=== PATIENT | male | born 1965 | race Caucasian/White ===

== ENCOUNTER 2021-06-10 02:49 | Inpatient (IN) ==
[2021-06-10] MEDS ORDERED: Naloxone 0.4 MG/ML INJ IVP PRN (06:16)
[2021-06-10] MEDS ORDERED: Artificial Tears SOLN 15 ML BOTTLE BOTH EYES PRN (06:31)
[2021-06-10 06:32] LABS: ABG Base Excess -3 mEq/L (-2 to 3); ABG HCO3 24 mEq/L (21-27); ABG Oxygen Saturation 97 % (95-98); ABG PCO2 48 mmHg (35-45); ABG PH 7.31 pH Units (7.32-7.45); ABG PO2 98 mmHg (85-104); ABG TCO2 26 mEq/L (20-26); Blood Gas VT 500 cc
[2021-06-10] MEDS ORDERED: Perflutren Lipid Microsphere 1.3 ML in 0.9 % Sodium Chloride 8.7 ML IVP PRN ×2 (06:34→10:13)
[2021-06-10] MEDS ORDERED: Dextrose Gel 15 GM/37.5 ML TUBE PO PRN ×2 (06:36)
[2021-06-10] MEDS ORDERED: *HR* Dextrose 50 % in Water (Syg) 50 ML SYRINGE IVP PRN (06:36)
[2021-06-10] MEDS ORDERED: D5% in Water 1,000 ML IVC PRN (06:36)
[2021-06-10] MEDS: Artificial Tears SOLN 15 ML BOTTLE BOTH EYES SCH ×5 (07:17→23:45)
[2021-06-10] MEDS: FentaNYL (PF) 1,000 MCG/100 ML IV.SOLN IVC SCH ×2 (07:17→16:35)
[2021-06-10] MEDS: Midazolam HCl 50 MG/100 ML IV.SOLN IVC SCH (07:17)
[2021-06-10 07:21] LABS: Hematocrit 44.7 % (37.5-50.1); Hemoglobin 13.4 g/dL (12.9-16.9); Mean Corpuscular Hemoglobin 26.5 pg (28.0-33.3); Mean Corpuscular Volume 88.5 fL (83.0-100.0); Mean Platelet Volume 10.5 fL (9.4-12.4); Platelet Count 262 K/mcL (140-400); Red Blood Count 5.05 M/mcL (4.19-5.50); Red Cell Distribution Width 19.1 % (11.5-14.5); White Blood Count 10.8 K/mcL (4.3-11.1)
[2021-06-10 07:28] LABS: Heparin anti-factor XA UFH < 0.04 IU/mL (0.30-0.70); Prothrombin Time 22.7 Seconds (9.4-12.1)
[2021-06-10 07:31] LABS: Activated Partial Thrombo Time 38.4 Seconds (26.0-36.0)
[2021-06-10 07:52] LABS: Bilirubin,Urine Negative (Negative); Blood,Urine Negative (Negative); Clarity,Urine Clear (Clear); Color,Urine Colorless (Yellow); Glucose,Urine (UA) Normal (Normal); Ketones,Urine Negative (Negative); Leukocyte Esterase,Urine Negative (Negative); Nitrite,Urine Negative (Negative); PH,Urine 6.5 pH Units (5.0-8.0); Protein,Urine Negative (Neg-Trace); Specific Gravity,Urine 1.008 (1.010-1.025); Urobilinogen,Urine Normal (Normal)
[2021-06-10 07:54] LABS: Albumin 3.2 g/dL (3.5-5.7); Albumin/Globulin Ratio 1.2 (1.1-2.2); Bilirubin,Direct 2.4 mg/dL (0.0-0.2); Bilirubin,Indirect 1.6 mg/dL (0.0-1.0); Calcium 9.1 mg/dL (8.6-10.3); Globulin 2.6 g/dL (2.4-3.5); Magnesium 2.4 mg/dL (1.6-2.6); Potassium 4.8 mEq/L (3.5-5.1); Total Protein 5.8 g/dL (6.4-8.9); Troponin I 0.07 ng/mL (< 0.04)
[2021-06-10] MEDS ORDERED: *HR* Heparin 5,000 UNIT/ML VIAL SQ SCH (08:00)
[2021-06-10] MEDS: Pantoprazole 40 MG VIAL IVP SCH (09:54)
[2021-06-10] MEDS: Chlorhexidine Rinse 15 ML MOUTHWASH MM SCH ×2 (09:54→19:45)
[2021-06-10] MEDS: Piperacillin/Tazobactam 3.375 GM in 0.9 % Sodium Chloride Mini Bag 100 ML IVPB SCH ×3 (09:54→23:45)
[2021-06-10] MEDS ORDERED: *HR* Heparin 5,000 UNIT/ML VIAL IVP PRN ×2 (12:10)
[2021-06-10] MEDS ORDERED: *HR* Heparin 5,000 UNIT/ML VIAL IVP ONE (12:10)
[2021-06-10] MEDS: Insulin LISPRO 300 UNITS/3 ML VIAL SUBQ SCH ×3 (12:13→23:58)
[2021-06-10 12:21] LABS: Estimated Average Glucose 255 mg/dl; Hemoglobin A1C 10.5 %
[2021-06-10] MEDS: Aspirin 81 MG TAB.CHEW PO SCH (13:26)
[2021-06-10] MEDS: Heparin 25,000UNIT/250ML 1/2NS 25,000 UNIT/250 ML IV.SOLN IVC SCH (13:27)
[2021-06-10 15:44] LABS: Hematocrit 39.8 % (37.5-50.1); Hemoglobin 12.5 g/dL (12.9-16.9); Mean Corpuscular HGB Conc 31.4 g/dL (31.6-35.5); Mean Corpuscular Hemoglobin 26.5 pg (28.0-33.3); Mean Corpuscular Volume 84.3 fL (83.0-100.0); Mean Platelet Volume 10.7 fL (9.4-12.4); Platelet Count 236 K/mcL (140-400); Red Blood Count 4.72 M/mcL (4.19-5.50); Red Cell Distribution Width 18.5 % (11.5-14.5); White Blood Count 7.5 K/mcL (4.3-11.1)
[2021-06-10 16:11] LABS: INR 2.5; Prothrombin Time 27.5 Seconds (9.4-12.1)
[2021-06-10 16:19] LABS: Heparin anti-factor XA UFH 1.11 IU/mL (0.30-0.70)
[2021-06-11 00:06] LABS: VBG Ionized Calcium 1.06 mmol/L (1.15-1.35)
[2021-06-11] MEDS: FentaNYL (PF) 1,000 MCG/100 ML IV.SOLN IVC SCH ×3 (00:15→16:35)
[2021-06-11 00:22] LABS: Calcium 8.1 mg/dL (8.6-10.3); Magnesium 2.1 mg/dL (1.6-2.6); Phosphorous 3.4 mg/dL (2.7-4.5); Potassium 3.9 mEq/L (3.5-5.1)
[2021-06-11] MEDS: Artificial Tears SOLN 15 ML BOTTLE BOTH EYES SCH ×4 (04:00→16:00)
[2021-06-11 04:04] LABS: ABG Base Excess 5 mEq/L (-2 to 3); ABG HCO3 28 mEq/L (21-27); ABG Oxygen Saturation 93 % (95-98); ABG PCO2 33 mmHg (35-45); ABG PH 7.53 pH Units (7.32-7.45); ABG PO2 59 mmHg (85-104); ABG TCO2 29 mEq/L (20-26); Blood Gas VT 500 cc
[2021-06-11 04:29] LABS: Basophils % 0.3 %; Eosinophils # 0.1 K/mcL (0.0-0.6); Eosinophils % 1.2 %; Hematocrit 41.9 % (37.5-50.1); Hemoglobin 13.1 g/dL (12.9-16.9); Immature Granulocytes % 0.4 % (0-4); Lymphocytes # 1.6 K/mcL (0.6-4.6); Lymphocytes % 20.9 %; Mean Corpuscular HGB Conc 31.3 g/dL (31.6-35.5); Mean Corpuscular Volume 83.3 fL (83.0-100.0); Mean Platelet Volume 10.2 fL (9.4-12.4); Monocytes # 0.6 K/mcL (0.0-1.3); Monocytes % 8.3 %; Neutrophils # 5.2 K/mcL (1.6-8.9); Nucleated Red Blood Cells 0.4 /100 WBC (0); Platelet Count 252 K/mcL (140-400); Red Blood Count 5.03 M/mcL (4.19-5.50); Segmented Neutrophils % 68.9 %; White Blood Count 7.6 K/mcL (4.3-11.1)
[2021-06-11 05:05] LABS: Calcium 8.3 mg/dL (8.6-10.3); Magnesium 2.2 mg/dL (1.6-2.6); Phosphorous 3.6 mg/dL (2.7-4.5); Potassium 3.9 mEq/L (3.5-5.1)
[2021-06-11] MEDS: Insulin LISPRO 300 UNITS/3 ML VIAL SUBQ SCH ×2 (06:18→14:47)
[2021-06-11] MEDS: Midazolam HCl 50 MG/100 ML IV.SOLN IVC SCH (08:26)
[2021-06-11] MEDS: Pantoprazole 40 MG VIAL IVP SCH (08:46)
[2021-06-11] MEDS: Aspirin 81 MG TAB.CHEW PO SCH (08:49)
[2021-06-11] MEDS: Chlorhexidine Rinse 15 ML MOUTHWASH MM SCH ×2 (08:49→21:35)
[2021-06-11] MEDS: Piperacillin/Tazobactam 3.375 GM in 0.9 % Sodium Chloride Mini Bag 100 ML IVPB SCH ×2 (08:49→16:59)
[2021-06-11] MEDS: Furosemide 240 MG in 0.9 % Sodium Chloride 96 ML IVC SCH (12:13)
[2021-06-11 13:26] LABS: VBG HCO3 28 mEq/L (21-27); VBG PCO2 44 mmHg (41-51); VBG PH 7.42 pH Units (7.32-7.42); VBG PO2 102 mmHg (25-50)
[2021-06-11 13:31] LABS: Potassium 3.9 mEq/L (3.5-5.1)
[2021-06-11] MEDS: Heparin 25,000UNIT/250ML 1/2NS 25,000 UNIT/250 ML IV.SOLN IVC SCH (14:44)
[2021-06-11 22:14] LABS: Calcium 8.1 mg/dL (8.6-10.3); Potassium 3.8 mEq/L (3.5-5.1)
[2021-06-12] MEDS: FentaNYL (PF) 1,000 MCG/100 ML IV.SOLN IVC SCH ×3 (00:29→17:00)
[2021-06-12] MEDS: Piperacillin/Tazobactam 3.375 GM in 0.9 % Sodium Chloride Mini Bag 100 ML IVPB SCH ×3 (00:48→17:00)
[2021-06-12 04:09] LABS: ABG Base Excess 6 mEq/L (-2 to 3); ABG HCO3 29 mEq/L (21-27); ABG Oxygen Saturation 94 % (95-98); ABG PCO2 36 mmHg (35-45); ABG PH 7.51 pH Units (7.32-7.45); ABG PO2 64 mmHg (85-104); ABG TCO2 30 mEq/L (20-26); Blood Gas VT 500 cc
[2021-06-12 04:15] LABS: Basophils % 0.3 %; Eosinophils # 0.1 K/mcL (0.0-0.6); Eosinophils % 0.7 %; Hematocrit 46.8 % (37.5-50.1); Immature Granulocytes % 0.4 % (0-4); Lymphocytes # 1.5 K/mcL (0.6-4.6); Lymphocytes % 22.2 %; Mean Corpuscular HGB Conc 31.4 g/dL (31.6-35.5); Mean Corpuscular Hemoglobin 26.5 pg (28.0-33.3); Mean Corpuscular Volume 84.3 fL (83.0-100.0); Mean Platelet Volume 10.2 fL (9.4-12.4); Monocytes # 0.6 K/mcL (0.0-1.3); Monocytes % 8.5 %; Neutrophils # 4.6 K/mcL (1.6-8.9); Platelet Count 276 K/mcL (140-400); Red Blood Count 5.55 M/mcL (4.19-5.50); Red Cell Distribution Width 19.5 % (11.5-14.5); Segmented Neutrophils % 67.9 %; White Blood Count 6.8 K/mcL (4.3-11.1)
[2021-06-12 04:24] LABS: Calcium 8.6 mg/dL (8.6-10.3); Potassium 3.5 mEq/L (3.5-5.1)
[2021-06-12 04:30] LABS: Hemoglobin 14.7 g/dL (12.9-16.9)
[2021-06-12] MEDS: Midazolam HCl 50 MG/100 ML IV.SOLN IVC SCH (06:42)
[2021-06-12] MEDS: Insulin LISPRO 300 UNITS/3 ML VIAL SUBQ SCH ×4 (07:25→18:07)
[2021-06-12] MEDS: Artificial Tears SOLN 15 ML BOTTLE BOTH EYES SCH ×6 (07:26→21:20)
[2021-06-12] MEDS: Heparin 25,000UNIT/250ML 1/2NS 25,000 UNIT/250 ML IV.SOLN IVC SCH (07:56)
[2021-06-12] MEDS: Pantoprazole 40 MG VIAL IVP SCH (08:04)
[2021-06-12] MEDS: Aspirin 81 MG TAB.CHEW PO SCH (08:04)
[2021-06-12] MEDS: Chlorhexidine Rinse 15 ML MOUTHWASH MM SCH ×2 (08:05→21:19)
[2021-06-12] MEDS ORDERED: Potassium Phosphate 44 MEQ in 0.9 % Sodium Chloride 250 ML IVPB PRN (08:14)
[2021-06-12] MEDS ORDERED: Calcium Gluconate 1gm/50mL 1 GM/50 ML BAG IVPB PRN (08:14)
[2021-06-12] MEDS: Furosemide 240 MG in 0.9 % Sodium Chloride 96 ML IVC SCH (09:33)
[2021-06-12] MEDS ORDERED: acetaZOLAMIDE 250 MG in Water for inj. (sterile) 2.5 ML IVP ONE (09:45)
[2021-06-12] MEDS: Dexmedetomidine HCl 400 MCG/100 ML MLS IVC SCH (13:32)
[2021-06-12 16:56] LABS: VBG Ionized Calcium 0.97 mmol/L (1.15-1.35)
[2021-06-12 17:06] LABS: Basophils % 0.4 %; Eosinophils % 0.5 %; Hematocrit 47.7 % (37.5-50.1); Hemoglobin 14.4 g/dL (12.9-16.9); Immature Granulocytes % 0.5 % (0-4); Lymphocytes # 1.5 K/mcL (0.6-4.6); Lymphocytes % 19.8 %; Mean Corpuscular HGB Conc 30.2 g/dL (31.6-35.5); Mean Corpuscular Hemoglobin 26.4 pg (28.0-33.3); Mean Corpuscular Volume 87.5 fL (83.0-100.0); Mean Platelet Volume 10.2 fL (9.4-12.4); Monocytes # 0.7 K/mcL (0.0-1.3); Monocytes % 9.8 %; Neutrophils # 5.2 K/mcL (1.6-8.9); Platelet Count 266 K/mcL (140-400); Red Blood Count 5.45 M/mcL (4.19-5.50); Red Cell Distribution Width 19.9 % (11.5-14.5); White Blood Count 7.5 K/mcL (4.3-11.1)
[2021-06-12 17:41] LABS: Calcium 8.2 mg/dL (8.6-10.3); Magnesium 2.2 mg/dL (1.6-2.6); Phosphorous 4.2 mg/dL (2.7-4.5); Potassium 4.2 mEq/L (3.5-5.1)
[2021-06-13] MEDS: Dexmedetomidine HCl 400 MCG/100 ML MLS IVC SCH ×3 (00:02→21:40)
[2021-06-13] MEDS: Piperacillin/Tazobactam 3.375 GM in 0.9 % Sodium Chloride Mini Bag 100 ML IVPB SCH ×4 (00:15→23:36)
[2021-06-13] MEDS: Artificial Tears SOLN 15 ML BOTTLE BOTH EYES SCH ×7 (00:16→23:12)
[2021-06-13] MEDS: Insulin LISPRO 300 UNITS/3 ML VIAL SUBQ SCH ×6 (00:35→23:22)
[2021-06-13 03:21] LABS: Basophils % 0.2 %; Eosinophils # 0.1 K/mcL (0.0-0.6); Eosinophils % 1.1 %; Hematocrit 45.4 % (37.5-50.1); Hemoglobin 13.7 g/dL (12.9-16.9); Immature Granulocytes % 0.4 % (0-4); Lymphocytes # 1.3 K/mcL (0.6-4.6); Lymphocytes % 22.3 %; Mean Corpuscular HGB Conc 30.2 g/dL (31.6-35.5); Mean Corpuscular Hemoglobin 26.3 pg (28.0-33.3); Mean Corpuscular Volume 87.3 fL (83.0-100.0); Mean Platelet Volume 10.1 fL (9.4-12.4); Monocytes # 0.5 K/mcL (0.0-1.3); Monocytes % 8.3 %; Neutrophils # 3.8 K/mcL (1.6-8.9); Nucleated Red Blood Cells 0.4 /100 WBC (0); Platelet Count 238 K/mcL (140-400); Red Cell Distribution Width 19.5 % (11.5-14.5); Segmented Neutrophils % 67.7 %; White Blood Count 5.7 K/mcL (4.3-11.1)
[2021-06-13 03:28] LABS: ABG Base Excess 7 mEq/L (-2 to 3); ABG HCO3 34 mEq/L (21-27); ABG Oxygen Saturation 70 % (95-98); ABG PCO2 56 mmHg (35-45); ABG PH 7.39 pH Units (7.32-7.45); ABG PO2 38 mmHg (85-104); ABG TCO2 36 mEq/L (20-26)
[2021-06-13 03:40] LABS: Calcium 8.8 mg/dL (8.6-10.3); Potassium 3.4 mEq/L (3.5-5.1)
[2021-06-13 03:41] LABS: VBG Ionized Calcium 1.11 mmol/L (1.15-1.35)
[2021-06-13] MEDS ORDERED: Albumin Human 5% 12.5 GM/250 ML IV.SOLN IVPB ONE (04:10)
[2021-06-13 04:46] LABS: ABG Base Excess 5 mEq/L (-2 to 3); ABG HCO3 31 mEq/L (21-27); ABG Oxygen Saturation 94 % (95-98); ABG PCO2 48 mmHg (35-45); ABG PH 7.41 pH Units (7.32-7.45); ABG PO2 70 mmHg (85-104); ABG TCO2 32 mEq/L (20-26); Blood Gas VT 450 cc
[2021-06-13] MEDS: Chlorhexidine Rinse 15 ML MOUTHWASH MM SCH ×2 (09:06→19:52)
[2021-06-13] MEDS: Aspirin 81 MG TAB.CHEW PO SCH (09:06)
[2021-06-13] MEDS: Pantoprazole 40 MG VIAL IVP SCH (09:06)
[2021-06-13 09:34] LABS: Hematocrit 45.4 % (37.5-50.1); Hemoglobin 13.9 g/dL (12.9-16.9)
[2021-06-13 17:42] LABS: Hematocrit 48.8 % (37.5-50.1); Hemoglobin 14.7 g/dL (12.9-16.9)
[2021-06-13] MEDS: FentaNYL (PF) 1,000 MCG/100 ML IV.SOLN IVC SCH ×2 (19:00→23:53)
[2021-06-13] MEDS: Midazolam HCl 50 MG/100 ML IV.SOLN IVC SCH ×2 (19:44→22:33)
[2021-06-13 20:21] LABS: Hematocrit 40.3 % (37.5-50.1)
[2021-06-13 20:23] LABS: Hemoglobin 11.5 g/dL (12.9-16.9)
[2021-06-13 22:57] LABS: Calcium 8.7 mg/dL (8.6-10.3); Potassium 4.1 mEq/L (3.5-5.1)
[2021-06-14] MEDS: Dexmedetomidine HCl 400 MCG/100 ML MLS IVC SCH ×5 (02:09→22:01)
[2021-06-14] MEDS: Artificial Tears SOLN 15 ML BOTTLE BOTH EYES SCH ×5 (03:20→19:53)
[2021-06-14 04:22] LABS: ABG Base Excess 2 mEq/L (-2 to 3); ABG HCO3 29 mEq/L (21-27); ABG Oxygen Saturation 95 % (95-98); ABG PCO2 51 mmHg (35-45); ABG PH 7.36 pH Units (7.32-7.45); ABG PO2 78 mmHg (85-104); ABG TCO2 31 mEq/L (20-26); Blood Gas VT 450 cc
[2021-06-14] MEDS: Insulin LISPRO 300 UNITS/3 ML VIAL SUBQ SCH ×3 (05:18→17:58)
[2021-06-14] MEDS: FentaNYL (PF) 1,000 MCG/100 ML IV.SOLN IVC SCH (05:47)
[2021-06-14] MEDS: Midazolam HCl 50 MG/100 ML IV.SOLN IVC SCH (06:29)
[2021-06-14] MEDS: Piperacillin/Tazobactam 3.375 GM in 0.9 % Sodium Chloride Mini Bag 100 ML IVPB SCH (07:46)
[2021-06-14] MEDS: Pantoprazole 40 MG VIAL IVP SCH (07:49)
[2021-06-14] MEDS: Chlorhexidine Rinse 15 ML MOUTHWASH MM SCH ×2 (07:49→19:55)
[2021-06-14] MEDS: Aspirin 81 MG TAB.CHEW PO SCH (07:49)
[2021-06-14 08:03] LABS: Hematocrit 46.9 % (37.5-50.1); Mean Corpuscular HGB Conc 29.6 g/dL (31.6-35.5); Mean Corpuscular Hemoglobin 25.9 pg (28.0-33.3); Mean Corpuscular Volume 87.3 fL (83.0-100.0); Mean Platelet Volume 10.1 fL (9.4-12.4); Platelet Count 257 K/mcL (140-400); Red Blood Count 5.37 M/mcL (4.19-5.50); Red Cell Distribution Width 19.4 % (11.5-14.5); White Blood Count 7.3 K/mcL (4.3-11.1)
[2021-06-14 08:04] LABS: Hemoglobin 13.9 g/dL (12.9-16.9)
[2021-06-14 08:14] LABS: Calcium 8.3 mg/dL (8.6-10.3); Magnesium 2.3 mg/dL (1.6-2.6); Phosphorous 3.9 mg/dL (2.7-4.5); Potassium 3.5 mEq/L (3.5-5.1)
[2021-06-14 08:16] LABS: Calcium 8.3 mg/dL (8.6-10.3); Potassium 3.5 mEq/L (3.5-5.1)
[2021-06-14] MEDS ORDERED: Furosemide 40 MG/4 ML VIAL IVP ONE (11:04)
[2021-06-14] MEDS: Pantoprazole 40 MG in 0.9 % Sodium Chloride Mini Bag 100 ML IVC SCH (19:55)
[2021-06-15] MEDS: Artificial Tears SOLN 15 ML BOTTLE BOTH EYES SCH ×7 (00:09→23:00)
[2021-06-15] MEDS: Pantoprazole 40 MG in 0.9 % Sodium Chloride Mini Bag 100 ML IVC SCH ×2 (00:09→05:15)
[2021-06-15 04:48] LABS: ABG Base Excess 3 mEq/L (-2 to 3); ABG HCO3 30 mEq/L (21-27); ABG Oxygen Saturation 93 % (95-98); ABG PCO2 54 mmHg (35-45); ABG PH 7.36 pH Units (7.32-7.45); ABG PO2 72 mmHg (85-104); ABG TCO2 32 mEq/L (20-26); Blood Gas VT 450 cc
[2021-06-15] MEDS: FentaNYL (PF) 1,000 MCG/100 ML IV.SOLN IVC SCH ×2 (05:10→15:32)
[2021-06-15] MEDS: Dexmedetomidine HCl 400 MCG/100 ML MLS IVC SCH ×4 (05:10→22:55)
[2021-06-15] MEDS: Midazolam HCl 50 MG/100 ML IV.SOLN IVC SCH (05:32)
[2021-06-15 06:27] LABS: Hematocrit 49.2 % (37.5-50.1); Hemoglobin 14.6 g/dL (12.9-16.9); Mean Corpuscular HGB Conc 29.7 g/dL (31.6-35.5); Mean Corpuscular Hemoglobin 26.1 pg (28.0-33.3); Mean Corpuscular Volume 87.9 fL (83.0-100.0); Mean Platelet Volume 10.3 fL (9.4-12.4); Platelet Count 220 K/mcL (140-400); Red Cell Distribution Width 19.7 % (11.5-14.5); White Blood Count 8.4 K/mcL (4.3-11.1)
[2021-06-15 06:46] LABS: BUN/Creatinine Ratio 18 (6-26); Blood Urea Nitrogen 26 mg/dL (6-20); Calcium 8.4 mg/dL (8.6-10.3); Carbon Dioxide 28 mEq/L (23-29); Chloride 104 mEq/L (98-107); Glucose 146 mg/dL (70-105); Osmolality,Calculated 301 (280-300); Potassium 3.7 mEq/L (3.5-5.1); Sodium 142 mEq/L (136-145); eGFR For African Americans > 60 (> 60); eGFR For Non-African Americans 51 (> 60)
[2021-06-15] MEDS: Insulin LISPRO 300 UNITS/3 ML VIAL SUBQ SCH ×5 (08:53→23:00)
[2021-06-15] MEDS: Chlorhexidine Rinse 15 ML MOUTHWASH MM SCH ×2 (08:59→20:15)
[2021-06-15] MEDS: Aspirin 81 MG TAB.CHEW PO SCH (08:59)
[2021-06-15] MEDS: Pantoprazole 40 MG VIAL IVP SCH (09:52)
[2021-06-15] MEDS ORDERED: Lidocaine -MPF 1% 5 ML AMPUL INFILT ONE (17:52)
[2021-06-15] MEDS: Furosemide 20 MG/2 ML VIAL IVP SCH (18:11)
[2021-06-16] MEDS: Midazolam HCl 50 MG/100 ML IV.SOLN IVC SCH (01:33)
[2021-06-16] MEDS: Artificial Tears SOLN 15 ML BOTTLE BOTH EYES SCH ×3 (03:26→12:31)
[2021-06-16 03:53] LABS: Hematocrit 47.3 % (37.5-50.1); Hemoglobin 14.1 g/dL (12.9-16.9); Mean Corpuscular HGB Conc 29.8 g/dL (31.6-35.5); Mean Corpuscular Hemoglobin 26.3 pg (28.0-33.3); Mean Corpuscular Volume 88.2 fL (83.0-100.0); Mean Platelet Volume 9.8 fL (9.4-12.4); Platelet Count 206 K/mcL (140-400); Red Blood Count 5.36 M/mcL (4.19-5.50); Red Cell Distribution Width 19.7 % (11.5-14.5); White Blood Count 8.5 K/mcL (4.3-11.1)
[2021-06-16 04:13] LABS: BUN/Creatinine Ratio 19 (6-26); Blood Urea Nitrogen 20 mg/dL (6-20); Calcium 8.4 mg/dL (8.6-10.3); Carbon Dioxide 27 mEq/L (23-29); Chloride 106 mEq/L (98-107); Glucose 130 mg/dL (70-105); Osmolality,Calculated 298 (280-300); Potassium 3.9 mEq/L (3.5-5.1); Sodium 142 mEq/L (136-145); eGFR For African Americans > 60 (> 60); eGFR For Non-African Americans > 60 (> 60)
[2021-06-16 04:23] LABS: ABG Base Excess 1 mEq/L (-2 to 3); ABG HCO3 27 mEq/L (21-27); ABG Oxygen Saturation 96 % (95-98); ABG PCO2 48 mmHg (35-45); ABG PH 7.37 pH Units (7.32-7.45); ABG PO2 83 mmHg (85-104); ABG TCO2 29 mEq/L (20-26); Blood Gas Modality AF; Blood Gas VT 450 cc
[2021-06-16] MEDS: FentaNYL (PF) 1,000 MCG/100 ML IV.SOLN IVC SCH (06:09)
[2021-06-16] MEDS: Insulin LISPRO 300 UNITS/3 ML VIAL SUBQ SCH ×3 (06:11→18:29)
[2021-06-16] MEDS: Aspirin 81 MG TAB.CHEW PO SCH (07:34)
[2021-06-16] MEDS: Chlorhexidine Rinse 15 ML MOUTHWASH MM SCH (07:34)
[2021-06-16] MEDS: Furosemide 20 MG/2 ML VIAL IVP SCH (07:34)
[2021-06-16] MEDS: Pantoprazole 40 MG VIAL IVP SCH (07:35)
[2021-06-16] MEDS: Dexmedetomidine HCl 400 MCG/100 ML MLS IVC SCH ×3 (07:37→20:21)
[2021-06-16] MEDS ORDERED: Dextrose Gel 15 GM/37.5 ML TUBE PO PRN ×2 (17:03)
[2021-06-16] MEDS ORDERED: *HR* Dextrose 50 % in Water (Syg) 50 ML SYRINGE IVP PRN (17:03)
[2021-06-16] MEDS ORDERED: Potassium Phosphate 44 MEQ in 0.9 % Sodium Chloride 250 ML IVPB PRN (17:03)
[2021-06-16] MEDS ORDERED: Artificial Tears SOLN 15 ML BOTTLE BOTH EYES PRN (17:03)
[2021-06-16] MEDS ORDERED: Naloxone 0.4 MG/ML INJ IVP PRN (17:03)
[2021-06-16] MEDS ORDERED: D5% in Water 1,000 ML IVC PRN (17:03)
[2021-06-16] MEDS ORDERED: *HR* Heparin 5,000 UNIT/ML VIAL SQ SCH (18:00)
[2021-06-16] MEDS ORDERED: Chlorhexidine Rinse 15 ML MOUTHWASH MM SCH (21:00)
[2021-06-16] MEDS ORDERED: *HR* LORazepam 2 MG/ML VIAL IM STA (21:11)
[2021-06-17] MEDS: *HR* Heparin 5,000 UNIT/ML VIAL SQ SCH ×3 (00:13→16:54)
[2021-06-17] MEDS: Dexmedetomidine HCl 400 MCG/100 ML MLS IVC SCH ×4 (00:15→12:33)
[2021-06-17] MEDS: Insulin LISPRO 300 UNITS/3 ML VIAL SUBQ SCH ×4 (00:19→19:48)
[2021-06-17 04:02] LABS: VBG Ionized Calcium 1.17 mmol/L (1.15-1.35)
[2021-06-17 04:07] LABS: Basophils % 0.3 %; Eosinophils % 0.3 %; Hematocrit 44.3 % (37.5-50.1); Hemoglobin 13.2 g/dL (12.9-16.9); Immature Granulocytes % 0.5 % (0-4); Lymphocytes # 1.2 K/mcL (0.6-4.6); Lymphocytes % 16.2 %; Mean Corpuscular HGB Conc 29.8 g/dL (31.6-35.5); Mean Corpuscular Volume 87.2 fL (83.0-100.0); Mean Platelet Volume 10.4 fL (9.4-12.4); Monocytes # 0.7 K/mcL (0.0-1.3); Monocytes % 9.2 %; Neutrophils # 5.6 K/mcL (1.6-8.9); Platelet Count 213 K/mcL (140-400); Red Blood Count 5.08 M/mcL (4.19-5.50); Red Cell Distribution Width 19.2 % (11.5-14.5); Segmented Neutrophils % 73.5 %; White Blood Count 7.6 K/mcL (4.3-11.1)
[2021-06-17 04:13] LABS: BUN/Creatinine Ratio 20 (6-26); Blood Urea Nitrogen 18 mg/dL (6-20); Calcium 8.4 mg/dL (8.6-10.3); Carbon Dioxide 27 mEq/L (23-29); Chloride 105 mEq/L (98-107); Glucose 195 mg/dL (70-105); Magnesium 1.9 mg/dL (1.6-2.6); Osmolality,Calculated 297 (280-300); Phosphorous 2.1 mg/dL (2.7-4.5); Sodium 140 mEq/L (136-145); eGFR For African Americans > 60 (> 60); eGFR For Non-African Americans > 60 (> 60)
[2021-06-17 07:13] LABS: Albumin 2.8 g/dL (3.5-5.7); Bilirubin,Direct 3.6 mg/dL (0.0-0.2); Bilirubin,Total 5.6 mg/dL (0.3-1.0); Globulin 2.9 g/dL (2.4-3.5); Total Protein 5.7 g/dL (6.4-8.9)
[2021-06-17] MEDS: Pantoprazole 40 MG VIAL IVP SCH (09:05)
[2021-06-17] MEDS: Aspirin 81 MG TAB.CHEW PO SCH (09:06)
[2021-06-17] MEDS: Furosemide 20 MG/2 ML VIAL IVP SCH ×2 (09:06→16:54)
[2021-06-17] MEDS ORDERED: Ipratropium/Albuterol Neb 3 ML IH PRN (13:08)
[2021-06-17 14:10] LABS: INR 1.4; Prothrombin Time 15.7 Seconds (9.4-12.1)
[2021-06-17] MEDS ORDERED: *HR* Warfarin 4 MG TABLET PO ONE (18:00)
[2021-06-17] MEDS ORDERED: Warfarin perPT PO SCH (18:00)
[2021-06-17] MEDS: Sacubitril/Valsartan 24/26 MG 1 TABLET PO SCH (20:35)
[2021-06-17] MEDS: Lactulose Oral Soln 20 GM/30 ML UDC PO SCH (20:35)
[2021-06-17] MEDS: Budesonide/Formoterol 160/4.5 1 PUFF INH IH SCH (20:42)
[2021-06-18] MEDS: Dexmedetomidine HCl 400 MCG/100 ML MLS IVC SCH ×3 (00:22→22:22)
[2021-06-18] MEDS: *HR* Heparin 5,000 UNIT/ML VIAL SQ SCH ×4 (02:26→22:58)
[2021-06-18] MEDS: Insulin LISPRO 300 UNITS/3 ML VIAL SUBQ SCH ×4 (02:27→17:39)
[2021-06-18 04:26] LABS: VBG Ionized Calcium 1.12 mmol/L (1.15-1.35)
[2021-06-18 04:36] LABS: Basophils # 0.1 K/mcL (0.0-0.2); Basophils % 0.5 %; Eosinophils % 0.1 %; Hematocrit 48.1 % (37.5-50.1); Immature Granulocytes % 0.8 % (0-4); Lymphocytes # 1.7 K/mcL (0.6-4.6); Lymphocytes % 17.2 %; Mean Corpuscular HGB Conc 31.4 g/dL (31.6-35.5); Mean Corpuscular Volume 82.9 fL (83.0-100.0); Mean Platelet Volume 10.5 fL (9.4-12.4); Monocytes # 0.9 K/mcL (0.0-1.3); Monocytes % 8.9 %; Platelet Count 313 K/mcL (140-400); Red Cell Distribution Width 19.9 % (11.5-14.5); Segmented Neutrophils % 72.5 %; White Blood Count 9.7 K/mcL (4.3-11.1)
[2021-06-18 04:38] LABS: Hemoglobin 15.1 g/dL (12.9-16.9)
[2021-06-18 04:47] LABS: INR 1.5; Prothrombin Time 16.4 Seconds (9.4-12.1)
[2021-06-18 04:50] LABS: Magnesium 1.8 mg/dL (1.6-2.6)
[2021-06-18 04:53] LABS: Alanine Aminotransferase 57 Units/L (7-52); Albumin 2.9 g/dL (3.5-5.7); Alkaline Phosphatase 389 Units/L (34-104); Aspartate Amino Transferase 123 Units/L (13-39); BUN/Creatinine Ratio 17 (6-26); Bilirubin,Total 8.4 mg/dL (0.3-1.0); Blood Urea Nitrogen 16 mg/dL (6-20); Calcium 8.5 mg/dL (8.6-10.3); Carbon Dioxide 24 mEq/L (23-29); Chloride 105 mEq/L (98-107); Glucose 150 mg/dL (70-105); Osmolality,Calculated 298 (280-300); Potassium 3.3 mEq/L (3.5-5.1); Sodium 142 mEq/L (136-145); Total Protein 5.9 g/dL (6.4-8.9); eGFR For African Americans > 60 (> 60); eGFR For Non-African Americans > 60 (> 60)
[2021-06-18] MEDS: Budesonide/Formoterol 160/4.5 1 PUFF INH IH SCH ×2 (07:49→19:56)
[2021-06-18] MEDS ORDERED: Metoprolol XL (24 HR) Succ 25 MG TAB.ER.24H PO SCH (09:00)
[2021-06-18] MEDS: Spironolactone 25 MG TABLET PO SCH (11:46)
[2021-06-18] MEDS: Pantoprazole 40 MG VIAL IVP SCH (11:46)
[2021-06-18] MEDS: Lactulose Oral Soln 20 GM/30 ML UDC PO SCH ×2 (11:46→22:26)
[2021-06-18] MEDS: Furosemide 20 MG/2 ML VIAL IVP SCH ×2 (11:47→15:56)
[2021-06-18] MEDS: Aspirin 81 MG TAB.CHEW PO SCH (11:47)
[2021-06-18] MEDS: Sacubitril/Valsartan 24/26 MG 1 TABLET PO SCH ×2 (11:51→22:23)
[2021-06-18] MEDS ORDERED: Potassium Phosphate 44 MEQ in 0.9 % Sodium Chloride 250 ML IVPB ONE (14:30)
[2021-06-18] MEDS ORDERED: *HR* Warfarin 2 MG TABLET PO ONE (18:00)
[2021-06-18] MEDS: Metoprolol XL (24 HR) Succ 25 MG TAB.ER.24H PO SCH (22:25)
[2021-06-18] MEDS ORDERED: Warfarin perPT PO PRN (23:15)
[2021-06-19 05:18] LABS: Basophils % 0.3 %; Eosinophils % 0.2 %; Hematocrit 41.9 % (37.5-50.1); Lymphocytes # 1.8 K/mcL (0.6-4.6); Lymphocytes % 18.9 %; Mean Corpuscular HGB Conc 32.2 g/dL (31.6-35.5); Mean Corpuscular Hemoglobin 26.3 pg (28.0-33.3); Mean Corpuscular Volume 81.7 fL (83.0-100.0); Mean Platelet Volume 10.9 fL (9.4-12.4); Monocytes # 0.6 K/mcL (0.0-1.3); Monocytes % 6.9 %; Neutrophils # 6.8 K/mcL (1.6-8.9); Platelet Count 311 K/mcL (140-400); Red Blood Count 5.13 M/mcL (4.19-5.50); Red Cell Distribution Width 18.9 % (11.5-14.5); Segmented Neutrophils % 72.7 %; White Blood Count 9.3 K/mcL (4.3-11.1)
[2021-06-19 05:23] LABS: Hemoglobin 13.5 g/dL (12.9-16.9)
[2021-06-19] MEDS: Insulin LISPRO 300 UNITS/3 ML VIAL SUBQ SCH ×3 (05:23→20:32)
[2021-06-19 05:36] LABS: INR 2.1; Prothrombin Time 23.2 Seconds (9.4-12.1)
[2021-06-19 05:47] LABS: Thyroid Stimulating Hormone 12.336 mcIU/mL (0.340-5.600)
[2021-06-19 05:54] LABS: Alanine Aminotransferase 52 Units/L (7-52); Albumin 2.8 g/dL (3.5-5.7); Alkaline Phosphatase 340 Units/L (34-104); Aspartate Amino Transferase 78 Units/L (13-39); BUN/Creatinine Ratio 14 (6-26); Bilirubin,Direct 4.6 mg/dL (0.0-0.2); Bilirubin,Indirect 2.8 mg/dL (0.0-1.0); Bilirubin,Total 7.4 mg/dL (0.3-1.0); Blood Urea Nitrogen 12 mg/dL (6-20); Calcium 7.9 mg/dL (8.6-10.3); Carbon Dioxide 24 mEq/L (23-29); Chloride 98 mEq/L (98-107); Globulin 2.8 g/dL (2.4-3.5); Glucose 173 mg/dL (70-105); Osmolality,Calculated 278 (280-300); Potassium 3.3 mEq/L (3.5-5.1); Sodium 132 mEq/L (136-145); Total Protein 5.6 g/dL (6.4-8.9); eGFR For African Americans > 60 (> 60); eGFR For Non-African Americans > 60 (> 60)
[2021-06-19] MEDS: Sacubitril/Valsartan 24/26 MG 1 TABLET PO SCH ×2 (07:20→20:38)
[2021-06-19] MEDS: *HR* Heparin 5,000 UNIT/ML VIAL SQ SCH (07:20)
[2021-06-19] MEDS: Lactulose Oral Soln 20 GM/30 ML UDC PO SCH ×2 (07:20→20:38)
[2021-06-19] MEDS: Furosemide 20 MG/2 ML VIAL IVP SCH ×2 (07:20→18:35)
[2021-06-19] MEDS: Dexmedetomidine HCl 400 MCG/100 ML MLS IVC SCH (07:21)
[2021-06-19] MEDS: Aspirin 81 MG TAB.CHEW PO SCH (07:21)
[2021-06-19] MEDS: Spironolactone 25 MG TABLET PO SCH (07:21)
[2021-06-19] MEDS: Metoprolol XL (24 HR) Succ 25 MG TAB.ER.24H PO SCH ×2 (07:22→20:38)
[2021-06-19] MEDS: *HR* Digoxin 0.125 MG TABLET PO SCH (07:47)
[2021-06-19] MEDS: Thiamine (B-1) 100 MG TABLET PO SCH (09:21)
[2021-06-19] MEDS: Budesonide/Formoterol 160/4.5 1 PUFF INH IH SCH ×2 (11:40→20:10)
[2021-06-19] MEDS ORDERED: Potassium Phosphate 44 MEQ in 0.9 % Sodium Chloride 250 ML IVPB ONE (12:15)
[2021-06-19] MEDS ORDERED: *HR* Warfarin 1 MG TABLET PO ONE (18:00)
[2021-06-20] MEDS: Insulin LISPRO 300 UNITS/3 ML VIAL SUBQ SCH ×5 (01:00→23:43)
[2021-06-20 01:22] LABS: INR 2.3; Prothrombin Time 25.4 Seconds (9.4-12.1)
[2021-06-20 01:40] LABS: BUN/Creatinine Ratio 13 (6-26); Blood Urea Nitrogen 12 mg/dL (6-20); Calcium 8.2 mg/dL (8.6-10.3); Carbon Dioxide 22 mEq/L (23-29); Chloride 101 mEq/L (98-107); Glucose 123 mg/dL (70-105); Osmolality,Calculated 285 (280-300); Phosphorous 2.6 mg/dL (2.7-4.5); Potassium 3.4 mEq/L (3.5-5.1); Sodium 137 mEq/L (136-145); eGFR For African Americans > 60 (> 60); eGFR For Non-African Americans > 60 (> 60)
[2021-06-20] MEDS: Budesonide/Formoterol 160/4.5 1 PUFF INH IH SCH ×2 (07:13→19:40)
[2021-06-20] MEDS: *HR* Digoxin 0.125 MG TABLET PO SCH (07:50)
[2021-06-20] MEDS: Metoprolol XL (24 HR) Succ 25 MG TAB.ER.24H PO SCH ×2 (07:50→20:17)
[2021-06-20] MEDS: Aspirin 81 MG TAB.CHEW PO SCH (07:50)
[2021-06-20] MEDS: Spironolactone 25 MG TABLET PO SCH (07:50)
[2021-06-20] MEDS: Sacubitril/Valsartan 24/26 MG 1 TABLET PO SCH ×2 (07:50→20:17)
[2021-06-20] MEDS: Thiamine (B-1) 100 MG TABLET PO SCH (07:50)
[2021-06-20] MEDS: Lactulose Oral Soln 20 GM/30 ML UDC PO SCH ×2 (07:50→20:18)
[2021-06-20] MEDS: Furosemide 20 MG/2 ML VIAL IVP SCH ×2 (07:51→17:41)
[2021-06-20] MEDS ORDERED: Potassium Phosphate 44 MEQ in 0.9 % Sodium Chloride 250 ML IVPB ONE (08:28)
[2021-06-20] MEDS ORDERED: *HR* Warfarin 1 MG TABLET PO ONE (18:00)
[2021-06-20] MEDS: *HR* HYDROcodone/Acet 5/325 mg TABLET PO PRN (18:10)
[2021-06-20] MEDS: Magnesium Oxide 400 MG TABLET PO SCH (20:18)
[2021-06-20] MEDS: Haloperidol Lactate 5 MG/ML VIAL IVP PRN (21:33)
[2021-06-21] MEDS: *HR* HYDROcodone/Acet 5/325 mg TABLET PO PRN (02:48)
[2021-06-21] MEDS: Insulin LISPRO 300 UNITS/3 ML VIAL SUBQ SCH ×3 (05:37→18:39)
[2021-06-21] MEDS: Thiamine (B-1) 100 MG TABLET PO SCH (07:18)
[2021-06-21] MEDS: Furosemide 20 MG/2 ML VIAL IVP SCH ×2 (07:18→16:49)
[2021-06-21] MEDS: Metoprolol XL (24 HR) Succ 25 MG TAB.ER.24H PO SCH ×2 (07:19→20:59)
[2021-06-21] MEDS: Lactulose Oral Soln 20 GM/30 ML UDC PO SCH ×2 (07:19→20:59)
[2021-06-21] MEDS: Sacubitril/Valsartan 24/26 MG 1 TABLET PO SCH ×2 (07:19→20:59)
[2021-06-21] MEDS: Magnesium Oxide 400 MG TABLET PO SCH ×2 (07:19→20:58)
[2021-06-21] MEDS: Spironolactone 25 MG TABLET PO SCH (07:19)
[2021-06-21] MEDS: Aspirin 81 MG TAB.CHEW PO SCH (07:19)
[2021-06-21] MEDS: *HR* Digoxin 0.125 MG TABLET PO SCH (07:19)
[2021-06-21] MEDS: Budesonide/Formoterol 160/4.5 1 PUFF INH IH SCH ×2 (08:02→19:28)
[2021-06-21 12:43] LABS: Alanine Aminotransferase 53 Units/L (7-52); Albumin 3.2 g/dL (3.5-5.7); Albumin/Globulin Ratio 1.1 (1.1-2.2); Alkaline Phosphatase 405 Units/L (34-104); Aspartate Amino Transferase 62 Units/L (13-39); BUN/Creatinine Ratio 12 (6-26); Bilirubin,Total 5.9 mg/dL (0.3-1.0); Blood Urea Nitrogen 13 mg/dL (6-20); Calcium 8.3 mg/dL (8.6-10.3); Carbon Dioxide 25 mEq/L (23-29); Chloride 102 mEq/L (98-107); Globulin 2.9 g/dL (2.4-3.5); Glucose 139 mg/dL (70-105); Magnesium 2.2 mg/dL (1.6-2.6); Osmolality,Calculated 286 (280-300); Potassium 3.8 mEq/L (3.5-5.1); Sodium 137 mEq/L (136-145); Total Protein 6.1 g/dL (6.4-8.9); eGFR For African Americans > 60 (> 60); eGFR For Non-African Americans > 60 (> 60)
[2021-06-21 12:55] LABS: INR 1.9; Prothrombin Time 21.3 Seconds (9.4-12.1)
[2021-06-21] MEDS: Nicotine 21 MG PATCH.TD24 TD SCH (16:48)
[2021-06-21] MEDS ORDERED: *HR* Warfarin 2 MG TABLET PO ONE (18:00)
[2021-06-22] MEDS: Insulin LISPRO 300 UNITS/3 ML VIAL SUBQ SCH ×3 (00:03→14:04)
[2021-06-22] MEDS: *HR* HYDROcodone/Acet 5/325 mg TABLET PO PRN (03:17)
[2021-06-22] MEDS: Haloperidol Lactate 5 MG/ML VIAL IVP PRN (03:17)
[2021-06-22 04:22] LABS: INR 1.6; Prothrombin Time 18.2 Seconds (9.4-12.1)
[2021-06-22] MEDS: Budesonide/Formoterol 160/4.5 1 PUFF INH IH SCH (07:58)
[2021-06-22] MEDS: Thiamine (B-1) 100 MG TABLET PO SCH (09:37)
[2021-06-22] MEDS: Magnesium Oxide 400 MG TABLET PO SCH (09:37)
[2021-06-22] MEDS: Aspirin 81 MG TAB.CHEW PO SCH (09:37)
[2021-06-22] MEDS: Metoprolol XL (24 HR) Succ 25 MG TAB.ER.24H PO SCH (09:37)
[2021-06-22] MEDS: *HR* Digoxin 0.125 MG TABLET PO SCH (09:37)
[2021-06-22] MEDS: Sacubitril/Valsartan 24/26 MG 1 TABLET PO SCH (09:37)
[2021-06-22] MEDS: Spironolactone 25 MG TABLET PO SCH (09:37)
[2021-06-22] MEDS: Furosemide 20 MG/2 ML VIAL IVP SCH (09:46)
[2021-06-22] MEDS: Lactulose Oral Soln 20 GM/30 ML UDC PO SCH (09:49)
[2021-06-22] MEDS: Nicotine 21 MG PATCH.TD24 TD SCH (09:50)
[2021-06-22 10:46] VITALS: PULSE 91; O2SAT 97
[2021-06-22 15:00] VITALS: BP 125/89; TEMP 97
[2021-06-22] MEDS ORDERED: *HR* Warfarin 2 MG TABLET PO ONE (18:00)
== END 2021-06-22 15:55 | disposition hospice, home (50) | DRG 870 ==
LOC: ICNU 05:32 → SUATTDRO 05:32 → 2NENU 06-17 06:52 → 3NENU 06-19 13:59
PROVIDERS: ADMIT Internal Medicine; ATTEND Internal Medicine